=== PATIENT | male | born 1985 ===

== ENCOUNTER 2017-12-21 08:27 | Emergency (ER) | payer OTHER ==
[2017-12-21 08:28] VITALS: BMI 28.3
[2017-12-21 08:29] VITALS: O2SAT 98
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
[2017-12-21 11:32] VITALS: BP 125/76; PULSE 78; RESP 19; TEMP 97.6
== END 2017-12-21 11:33 | disposition home or self-care (01) ==
LOC: H.ER 08:27
DX: S43.401A Unspecified sprain of right shoulder joint, initial encounter (principal); V49.59XA Passenger injured in collision with other motor vehicles in traffic accident, initial encounter